=== PATIENT | male | born 1990 | race Caucasian/White ===

== ENCOUNTER 2024-10-08 16:01 | Inpatient (IN) | payer OTHER, SELFPAY ==
[2024-10-08 11:41] VITALS: BP 113/85
[2024-10-08 12:47] VITALS: BMI 34.4
--- NOTE | 2024-10-08 15:03 | ED.GENMED ---
History of Present Illness
General
Chief Complaint: Musculo-Skeletal Complaint
Source: patient
Time Seen by Provider: 10/08/24 12:34
History of Present Illness
History of Present Illness:
This a 34-year-old male who injured his left arm 1 week ago. Patient states he had dropped his phone going up an escalator going to work and tried to jump over the other side and lost his footing and fell. He was seen in a hospital in [place]
and had a splint placed. He was advised to follow-up with orthopedics. He called for follow-up and next appointment was mid October. The pain has persisted. Dad is concerned because he lives in a [facility] and he is worried about his ability
to follow-up appropriately. Patient reports he has pains in the left humeral area rating up to his shoulder. No numbness or tingling. States he is able to move his fingers okay. He is in a long-arm splint.
Past History
Past History
ED Past Medical History: Other (ADHD, dyslexia)
Phy Exam
Physical Exam
Physical Exam:
CONSTITUTIONAL Vital signs reviewed, Patient alert and oriented to person, place and time. Well-appearing
HEAD atraumatic, normocephalic.
EYES eyelids normal to inspection, Extraocular muscles intact, Conjunctiva normal, Sclera normal.
NECK normal range of motion, Trachea midline, no jugular venous distention.
RESP no respiratory distress
BACK No obvious deformities
UPPER EXTREMITY unable to range the left shoulder and elbow due to pain. Splint was removed. Does have some healing ecchymosis noted to the humeral area. He does have a noted deformity and swelling to that area. Gross motor strength normal
LOWER EXTREMITY Gross range of motion normal, Gross motor strength normal
NEURO Speech normal, No focal motor deficits include, Javier coma scale 15, Memory normal, Cranial Nerves intact to screening exam.
SKIN Skin warm, dry, and normal in color.
PSYCHIATRIC Patient oriented to person place and time, Normal affect.
Course
Orders/Labs/Results
Orders:
Orders
10/08/24 Breakfast
Regular
At Your Request: Full Participation
10/08/24 13:07
CR Elbow - Left Min 2 View Urgent
Reason For Exam: fall, fracture, worsening pain
Forearm, Left 2 View [CR Forearm - Left 2 View] Urgent
Comment:
Reason For Exam: fall, fracture, worsening pain
Shoulder, Left, Trauma CR [CR Shoulder, Trauma - Left] Urgent
Comment:
Reason For Exam: fall, humeral fracture, worsening pain
10/08/24 15:13
CT Upper Ext W/o Iv Cont Lt Urgent
Comment: requested by ortho
Reason For Exam: humerus fracture
Splints/Slings/Crut- Treatment ONCE
Location: Left
Type of Splint: Other
Comment: coaptation splint
10/08/24 15:28
CBC/No Diff [Complete Blood Count/No Diff] Urgent
CMP [Comprehensive Metabolic Panel] Urgent
10/08/24 15:46
HYDROmorphone [Dilaudid] 0.25 mg IV NOW STA
10/08/24 15:50
Admit/Transfer Patient As Directed
Co-Sign Provider:
Level of Care: Inpatient admission
Assign to:: Medical/Surgical
Physician / Group: Htay
Diagnosis: Left Humerus Fracture
Reason for Hospitalization: Surgery
Expected length of stay greater than two midnights?: Yes
ELOS- Estimated Length of Stay in days: 3
I certify the patient meets the requirements for IP care: Yes
PRN Pain Medication Management As Directed
May give lesser potent ordered pain med per pt: Yes
preference::
Protocol:: Medication orders for pain may be administered in a
manner that supports deferring to patient preference
when the pt is:
- Requesting an ordered lesser potent pain medication.
Least to most potent pain medications are defined
as: acetaminophen < NSAID < tramadol < opioids
(morphine, oxycodone, hydromorphone).
- Requesting a lesser dose of the same medication IF
ORDERED.
- Requesting a less intrusive route of administration
if both routes are prescribed by the provider (PO <
IV).
10/08/24 15:51
Code Status As Directed
Resuscitation Status: Full Code
10/08/24 17:41
Acetaminophen [Tylenol] 1,000 mg PO TID
HYDROmorphone [Dilaudid] 0.25 mg IV Q3HPRN PRN
Ketorolac [Toradol] 15 mg IV Q6HPRN PRN
Nicotine Polacrilex [Nicorette] 2 mg PO Q2HPRN PRN
Oxycodone [Roxicodone] 5 mg PO Q4HPRN PRN
10/08/24 17:41
ORTHOPEDIC CONSULT Routine
Consulting Provider: Frankie Woodruff
Was physician already notified: Yes
Activity As Directed
Activity Level: Out of Bed-Early Mobility
Pneumatic Compression Sleeves As Directed
Type: Knee high
Vital Signs As Directed
Frequency: Per unit guidelines
Weight Bearing Status As Directed
Weight bearing to: Left upper extremity
Type: Non Wt. bearing
Smoking Cessation Counseling [RESP] Routine
Special Instructions: Vaping
DX Deep Vein Thrombosis Video Routine
10/09/24 Breakfast
NPO
Allow oral meds: Yes
Allow clear liquids: 4hrs prior to procedure
Comment: may have unrestricted clear liquid up to 4 hrs prior to scheduled procedure
Abnormal Lab Results
10/08/24
15:28
WBC 11.5 H 10^3/uL
(4.8-10.8)
RBC 4.60 L 10^6/uL
(4.70-6.10)
ALT 52 H U/L
(0-50)
10/08/24 15:28
10/08/24 15:28
Vital Signs
Initial and Last Documented VS:
Initial Vital Signs
Temp Pulse Resp BP Pulse Ox
99 F 90 16 113/85 99
10/08/24 11:41 10/08/24 11:41 10/08/24 11:41 10/08/24 11:41 10/08/24 11:41
Last Documented Vital Signs
Temp Pulse Resp BP Pulse Ox
99.0 F 91 18 125/83 99
10/08/24 17:45 10/08/24 17:45 10/08/24 17:45 10/08/24 17:45 10/08/24 17:45
MDM/Problems Addressed
MDM/Problems Addressed:
Displaced humeral fracture
*Radiology
Radiology exam reviewed: preliminary read by ED provider (Displaced humeral fracture)
*Pulse Oximetry
Patient hypoxic: no
*Critical Care Note
Total Time (30-74mins, 75-104mins- exclusive of procedures): Not Applicable
Data Reviewed
Source: patient and family
Patient Management
Discussion with other providers: Hospitalist and Mash Processing Operator (Case discussed with orthopedics who recommends CT and admission for operative repair tomorrow)
ED Attending Note
-
Portions of this chart may have been created with voice recognition software.� Occasional wrong word or��sound alike� substitutions may have occurred due to the inherent limitations of voice recognition software.
Discharge Plan
Departure
Patient Disposition: Admit
Date of Disposition: 10/08/24
Time of Disposition: 15:12
Admit to: Med/Surg
Presentation/result/management discussed w/ accepting MD/DO: Hospitalist
Discharge Problem:
Displaced fracture of left humerus
Interventions
Interventions:
*Risk Screen - Suicide Last Done: 10/08/24 11:45
*General Assessment Last Done: 10/08/24 12:47
*Neglect/Abuse Screening Last Done: 10/08/24 11:45
ED- Fall Risk Assessment Last Done: 10/08/24 15:39
*ED COVID-19 Vaccine History Last Done: 10/08/24 11:44
*Nursing Disposition Last Done: 10/08/24 17:43
ED-Musculoskeletal Assessment Last Done: 10/08/24 12:47
Discharge Date and Time
Discharge Date/Time: 10/08/24 17:44
--- NOTE | 2024-10-08 15:19 | HPS.HSE ---
Family Physician
-
Family Physician: * NONE
Chief Complaint
-
Left Arm Pain
History of Present Illness
Patient is a 34 y/o male who present with severe left arm pain. Patient reports he sustained a fall last week where he landed on his left arm. He was seen at an outside hospital where he was found to have a left humerus fracture. They wrapped the
arm in an JOSEFINA wrap and instructed him to follow-up with orthopedics. He was unable to get an appointment with ortho until October. Today he developed worsening pain prompting him to come to the emergency department for evaluation.
Medical History
Past Medical History
Past Medical History: Reports None
Past Surgical History: Reports None
Social History
Tobacco: Other (Former smoker quite about 2 years ago; Now Vapes frequently)
Alcohol: Occasional
Family History
Family History: Not pertinent
Allergies / Home Medications
Allergies reflects when Allergies were last updated in [facility].
Home Medications with original date entered in [facility]
Allergy/Medication List:
Allergies
Allergy/AdvReac Type Severity Reaction Status Date / Time
No Known Allergies Allergy Unverified 10/08/24 11:44
Home Medications
ibuprofen 200 mg tablet 400 mg PO Q8HPRN PRN mild pain 10/08/24
Review of Systems
-
A 12 point ROS was completed and negative except as noted: Yes
Constitutional: Denies Fever or Chills
Respiratory: Reports Cough (Slightly worse over the past few days); Denies Trouble Breathing
Cardiac: Denies Chest Pain or Palpitations
Abdomen/GI: Denies Abdominal Pain, Nausea, Vomiting or Diarrhea
Physical Exam
Vital Signs
Vital Signs
Temp Pulse Resp BP Pulse Ox
99 F 90 16 113/85 99
10/08/24 11:41 10/08/24 11:41 10/08/24 11:41 10/08/24 11:41 10/08/24 11:41
Physical Exam
General: Comfortable and Conversant
HEENT: Anicteric and Moist mucous membranes
Respiratory: Clear and Non Labored Respirations
Cardiac: S1/S2 and Regular Rhythm
GI: Soft and Non Tender
Musculoskeletal: No Clubbing, No Cyanosis and Other (LUE edema)
Skin: Warm and Dry
Neuro: Awake, Alert, Oriented and Nonfocal/grossly intact
Psych: Calm
Data Reviewed
-
Lab Data: Labs Reviewed by me
Impression/Plan
-
Left Humerus Fracture
-Consult Ortho
-Plan for OR tomorrow
-Continue immobilization
-Continue Tylenol, Oxycodone and Dilaudid for pain
Nicotine Dependence
-Patient reports almost constant vaping
-Encourage cessation of vaping
-Offered nicotine patch which patient declined - He is agreeable to try nicotine gum
DVT proph: SCDs
Code Status: Full Code
[2024-10-08 15:44] LABS: Hematocrit 39.8 % (39.0-52.0); Hemoglobin 13.7 g/dL (13.0-18.0); Mean Corp Hgb Conc. 34.4 g/dL (33.0-37.0); Mean Corpuscular Hgb 29.8 pg (27.0-31.0); Mean Corpuscular Volume 86.5 fL (80.0-94.0); Platelet Count 375 10^3/uL (130-400); Red Cell Dist. Width 13.1 % (11.5-14.5); White Blood Cell Count 11.5 10^3/uL (4.8-10.8)
[2024-10-08 15:59] LABS: ALT (SGPT) 52 U/L (0-50); AST (SGOT) 41 U/L (17-59); Albumin 4.2 g/dl (3.5-5.0); Alkaline Phosphatase 101 U/L (38-126); Blood Urea Nitrogen 15 mg/dl (9-20); Calcium 9.7 mg/dl (8.4-10.2); Carbon Dioxide 27 mmol/L (22-30); Chloride 101 mmol/L (98-107); Estimated Creatinine Clearance > 125 ml/min; Glucose 89 mg/dl (70-99); Potassium 4.6 mmol/L (3.5-5.1); Sodium 139 mmol/L (135-145); Total Bilirubin 1.1 mg/dl (0.2-1.3); Total Protein 7.1 g/dl (6.3-8.2); eGFR > 60.00
--- NOTE | 2024-10-08 16:11 | W.PN.UPDATE ---
Update Note
Progress Note Update
This note serves as an addendum to the H&P by talend developer BOB Jeanie ROCHA
HPI
34M Rt handed Man no signifcant PMH , not on any medication s/p mechanica fall on the escaltor 1 week ago , seen at different hospital , on sling with pending OP Ortho f/u pw severe worsening pain and swelling
PE:
Stable HD state
NAD
Atraumatic head
Lt UEx: swollen , palpable radial pulse
Data
WCC 11.5
Hgb 13.7
Plt 375
Unremarkable CMP
XR :
Complex, moderately displaced fracture involving the distal LEFT humerus.
Moderate associated soft tissue edema.
ASSESSMENT & PLAN
Complex, moderately displaced fracture involving the distal LEFT humerus s/p Mechanical fall
Moderate associated soft tissue edema
- Fx set protocol wit pain control , BW regime
- NPO after MN
- Ortho consulted
DVT Px: SCD
Full code
IP MS
[2024-10-08] MEDS: DILAUDID 0.25 MG IV (16:17)
[2024-10-08 17:29] VITALS: BP 126/81
[2024-10-08 17:45] VITALS: BP 125/83
[2024-10-08 17:46] VITALS: BMI 34.6
[2024-10-08] MEDS: TYLENOL 1000 MG PO ×2 (17:52→22:13)
[2024-10-08] MEDS: NICORETTE 2 MG PO (18:14)
[2024-10-08 23:00] VITALS: BP 117/65
[2024-10-09] VITALS (11 sets, daily range): BP systolic 112–129; BP diastolic 70–87
[2024-10-09] MEDS: ROXICODONE 5 MG PO (03:03)
--- NOTE | 2024-10-09 07:41 | CON.ORTHO ---
Consultation
-
Date/Time Consultation Requested: 10/08/24, time unknown
Date/Time Consultation Performed: 10/09/24 @7:20am
Requesting Provider: Julia Menon
Performing Provider: Angie Hatfield PA-C
Reason for Consultation: left distal humerus fracture
Consultation - Orthopedics
History
HPI: 34yo male admitted to [facility] for left arm pain. He reports that he had a fall about one week ago. He was going up an escalator when he dropped his phone. He jumped over the rail of the escalator, lost his footing and fell, landing
on the left arm. He states that he was seen at an outside hospital and placed in a splint with instructions to follow up with orthopedics. He states that he was unable to get an appointment until October. He came to the ER last night due to
increased pain.
PAST MEDICAL HISTORY: ADHD
PAST SURGICAL HISTORY: None
SOCIAL HISTORY: +vape, occasional alcohol.
FAMILY HISTORY: Non contributory
REVIEW OF SYSTEMS: 12 point review of systems obtained and negative except those mentioned in the HPI
Allergies / Home Medications
Allergy/AdvReac Type Severity Reaction Status Date / Time
No Known Allergies Allergy Unverified 10/08/24 11:44
�Medication �Instructions �Recorded
ibuprofen 200 mg tablet 400 mg PO Q8HPRN PRN mild pain 10/08/24
Vital Signs / Lab Results
Temp Pulse Resp BP Pulse Ox
98.5 F 70 16 117/65 97
10/08/24 23:00 10/08/24 23:00 10/08/24 23:00 10/08/24 23:00 10/08/24 23:00
10/08/24 15:28
10/08/24 15:28
RADIOGRAPHIC FINDINGS:
Xrays left shoulder, forearm, elbow show complex, moderately displaced fracture involving the distal LEFT humerus. Moderate associated soft tissue edema.
CT Left Upper Extremity shows slightly comminuted oblique fracture involving the mid to distal diaphysis of the left humerus. In addition to the dominant proximal and distal fracture component, there is an isolated fracture fragment measuring
approximately 5 cm in length. The distal margin of the proximal fracture component is displaced anteriorly relative to the distal fracture component with displacement of approximately 2 cm. No osteolytic or blastic lesion to suggest pathologic
fracture.
PHYSICAL EXAM:
General: no acute distress
HEENT: NCAT, sclera anicteric, normal hearing
Heart: No JVD
Lungs: normal work of breathing on room air
MSK: Focused exam of left upper extremity reveal splint in place. This was not removed. He is able to perform range of motion of the wrist and fingers. Sensation intact to light touch. Cap refill <2secs
Assessment / Plan
ASSESSMENT: 34yo male with displaced left distal humerus fracture
PLAN: Unfortunately, Mr. Cheung has sustained a displaced left distal humerus fracture. Recommend operative fixation. We discussed the risks, benefits, and potential complications. He is in agreement and wishes to proceed with left distal humerus
ORIF under the direction of Dr. Woodruff. Will plan on OR later today. Remain NPO. Leave splint in place and remain non weight bearing. Surgical consent was obtained and placed on patient's chart. Irrigation and antibiotics patient relations director to OR. Continue
with pain management as needed. Will continue to follow.
[2024-10-09] MEDS: TYLENOL 1000 MG PO ×2 (07:51→22:44)
--- NOTE | 2024-10-09 11:31 | CM ---
Patient seen bedside.
IA completed.
Patient will be going home with father in [place].
Multistory home.
Independent prior to admission.
Patient was most recently in a residential home in [place], but states he will be going to [address] [place] [address] post hospitalization.
No hx VN.
Patient for OR today for fractured humerus
No homecare needs anticiapted.
PCP: Dr Chadd Alcantara, [place]
Pharmacy: [facility]
--- NOTE | 2024-10-09 12:13 | W.PN.HOSP.TC ---
Today's Communication/Plan
-
Operative fixation of left upper extremity today
Assessment / Plan
Assessment / Plan
Physical Exam
General: Comfortable and Conversant
HEENT: Anicteric and Moist mucous membranes
Respiratory: Clear and Non Labored Respirations
Cardiac: S1/S2 and Regular Rhythm
GI: Soft and Non Tender
Musculoskeletal: No Clubbing, No Cyanosis and left upper extremity sling
Skin: Warm and Dry
Neuro: Awake, Alert, Oriented and Nonfocal/grossly intact
Psych: Calm
# Acute displaced left distal humerus fracture
Continue with pain control.
Patient was evaluated by orthopedic, plan for operative fixation today. Currently, patient is n.p.o.
# Preoperative evaluation
Patient has no history of lung or heart disease. Reports active lifestyle without chest pain or shortness of breath.
Normal blood pressure and heart rate.
Will order preoperative EKG
# History of reflux, possible induced by vaping or underlying hiatal hernia
Advised to follow-up with a primary care doctor and to avoid vaping
# Leukocytosis, likely reactive. No fever. Continue to monitor
#Nicotine Dependence
-Patient reports almost constant vaping
-Encourage cessation of vaping
-Offered nicotine patch which patient declined -
Total time spent to see the patient, examine the patient, review data and lab results, discuss treatment plan with patient, nursing care around 55 minutes
Anticipated Discharge: Within 24 hours
Subjective/Interval History
-
Date of Service: October 09, 2024
No sob
No chest pain
Objective Data
-
Vital Signs:
Vital Signs
Temp Pulse Resp BP Pulse Ox
98.3 F 64 17 112/70 97
10/09/24 07:46 10/09/24 07:46 10/09/24 07:46 10/09/24 07:46 10/09/24 07:46
I&O
10/08/24 10/09/24 10/10/24
06:59 06:59 06:59
Intake Total 480 / 480
Balance 480 / 480
--- NOTE | 2024-10-09 18:29 | W.PN.UPDATE ---
Update Note
Progress Note Update
s/p left distal humerus ORIF with Dr. Woodruff
-splint to LUE- NWB; may perform ROM of exposed wrist and hand
-monitor for radial and ulnar nerve neurapraxia- received block for pain
-DVT ppx- ASA 81mg BID for 4 weeks unless recommended otherwise per primary
-reg diet order placed
-pain regimen on board
-DC info completed- outpatient f/u 2 weeks for splint takedown, xrays and wound check
-may likely dc tomorrow pending NV exam from ortho aspect.
[2024-10-09] MEDS: DILAUDID 0.5 MG IV ×2 (18:37→18:57)
[2024-10-09] MEDS: TORADOL 15 MG IV (19:12)
[2024-10-09] MEDS: TYLENOL PO (20:04)
[2024-10-09] MEDS: LOW STRENGTH ASPIRIN 81 MG PO (20:46)
[2024-10-09] MEDS: DILAUDID 0.25 MG IV (20:56)
[2024-10-09] MEDS: ANCEF 5 IV (20:57)
[2024-10-10] VITALS (7 sets, daily range): BP systolic 108–128; BP diastolic 56–85; PULSE 94; O2SAT 97
[2024-10-10] MEDS: DILAUDID 0.25 MG IV ×2 (01:26→18:23)
[2024-10-10] MEDS: ANCEF 5 IV (05:26)
--- NOTE | 2024-10-10 05:51 | DOWNTIME ---
There was a [employer] Client Substance Addiction Coordinator Downtime on 10/10/2024 from 0100 to 10/10/2024 at 0350. Downtime documentation of patient's care, including medication administrations, has been reconciled in the electronic record per guidelines. Refer to the
patient's paper chart under the miscellaneous tab to see printed paper medication records and downtime forms.
--- NOTE | 2024-10-10 07:16 | W.PN.ORTHO ---
Today's Communication / Plan
-
34 yo M POD1 left distal humerus ORIF with Dr. Woodruff
--Splint to LUW. NWB; may perform ROM of exposed wrist and hand.
--Monitor for radial and ulnar nerve neurapraxia- received block for pain.
--DVT ppx- ASA 81mg BID for 4 weeks unless recommended otherwise per primary.
--Continue pain control prn. Discussed pain medications for d/c with Dr. Morales.
--DC info completed- outpatient f/u 2 weeks for splint takedown, xrays and wound check.
Assessment
.
Distal Motor Intact: Yes
Dressing:
Clean, dry and intact.
Plan
.
Surgery / Date: ORIF left distal humerus, Ranjan, 09/08
Activity:
Out of bed.
PT/OT
Subjective
.
.:
Mr. Cheung is POD1 following his ORIF left distal humerus fracture performed by Dr. Woodruff. He is resting comfortably in bed this morning, but does endorse quite a bit of pain throughout the arm. He reports the sensation in his hand is slowly
returning as the nerve block wears off. He is hoping to be discharged home today.
Vital Signs and Labs
.
Vital Signs and Labs:
Temp Pulse Resp BP Pulse Ox
99 F 74 16 121/75 97
10/10/24 04:12 10/10/24 04:12 10/10/24 04:12 10/10/24 04:12 10/10/24 04:12
Physical Exam
-
Directed exam of the left upper extremity reveals post-op splint in place. Expected post-operative edema in the left hand. Patient able to wiggle fingers, and extend thumb. Unable to extend wrist at this point. Sensation to light touch slightly
diminished throughout, consistent with resolving nerve block. Capillary refill <2 seconds.
[2024-10-10] MEDS: LOW STRENGTH ASPIRIN 81 MG PO ×2 (07:45→20:45)
[2024-10-10] MEDS: TYLENOL 1000 MG PO ×3 (07:45→21:54)
[2024-10-10] MEDS: ROXICODONE 5 MG PO ×3 (08:00→21:56)
[2024-10-10 08:42] LABS: Hematocrit 39.7 % (39.0-52.0); Hemoglobin 13.3 g/dL (13.0-18.0); Mean Corp Hgb Conc. 33.5 g/dL (33.0-37.0); Mean Corpuscular Hgb 28.9 pg (27.0-31.0); Mean Corpuscular Volume 86.1 fL (80.0-94.0); Mean Platelet Volume 10.1 fL (7.4-10.4); Platelet Count 455 10^3/uL (130-400); Red Blood Cell Count 4.61 10^6/uL (4.70-6.10); White Blood Cell Count 11.2 10^3/uL (4.8-10.8)
[2024-10-10 11:16] LABS: Blood Urea Nitrogen 20 mg/dl (9-20); Calcium 9.3 mg/dl (8.4-10.2); Carbon Dioxide 26 mmol/L (22-30); Chloride 100 mmol/L (98-107); Estimated Creatinine Clearance > 125 ml/min; Glucose 108 mg/dl (70-99); Potassium 4.8 mmol/L (3.5-5.1); Sodium 139 mmol/L (135-145); eGFR > 60.00
--- NOTE | 2024-10-10 13:30 | W.PN.HOSP.TC ---
Today's Communication/Plan
-
Pain control
Likely discharge in am
Assessment / Plan
Assessment / Plan
Physical Exam
General: Comfortable and Conversant
HEENT: Anicteric and Moist mucous membranes
Respiratory: Clear and Non Labored Respirations
Cardiac: S1/S2 and Regular Rhythm
GI: Soft and Non Tender
Musculoskeletal: No Clubbing, No Cyanosis and left upper extremity sling
Skin: Warm and Dry
Neuro: Awake, Alert, Oriented and Nonfocal/grossly intact
Psych: Calm
# Acute displaced left distal humerus fracture, s/p left distal humerus ORIF, Dr. Woodruff on 10/09
Continue with pain control.
DVT prophylaxis with aspirin 81 mg BID by ortho doctor
# Leukocytosis, reactive
No fevers
# History of reflux, possible induced by vaping or underlying hiatal hernia
Advised to follow-up with a primary care doctor and to avoid vaping
# Leukocytosis, likely reactive. No fever. Continue to monitor
#Nicotine Dependence, he reports he quit tobacco cigarette 4 years ago but using Vaping
-Encourage cessation of vaping, he seems to be willing to quit, understands potential side effects.
-Offered nicotine patch which patient declined -
Total time spent to see the patient, examine the patient, review data and lab results, discuss treatment plan with patient, ortho service, nursing care around 55 minutes
Anticipated Discharge: Within 24 hours
Subjective/Interval History
-
Date of Service: October 10, 2024
No sob
No chest pain
Objective Data
-
Labs:
Laboratory Results
10/10/24
08:03
WBC 11.2 H
Hgb 13.3
Hct 39.7
Plt Count 455 H D
Sodium 139
Potassium 4.8
Chloride 100
Carbon Dioxide 26
BUN 20
Creatinine 0.9
Glucose 108 H
Calcium 9.3
Vital Signs:
Vital Signs
Temp Pulse Resp BP Pulse Ox
98.3 F 86 16 119/78 98
10/10/24 07:30 10/10/24 07:30 10/10/24 07:30 10/10/24 07:30 10/10/24 07:30
I&O
10/09/24 10/10/24 10/11/24
06:59 06:59 06:59
Intake Total 480 / 480 680 / 680
Output Total 500 / 500
Balance 480 / 480 180 / 180
[2024-10-10] MEDS: TORADOL 15 MG IV (20:51)
[2024-10-11] MEDS: ROXICODONE 5 MG PO ×2 (05:12→09:48)
[2024-10-11 07:30] VITALS: BP 130/73
[2024-10-11] MEDS: TYLENOL 1000 MG PO (07:39)
[2024-10-11] MEDS: LOW STRENGTH ASPIRIN 81 MG PO (07:39)
--- NOTE | 2024-10-11 08:43 | W.DCSUMMARY ---
Discharge Summary
Discharge Data
Date of Admission: 10/08/24
Date of Discharge: 10/11/24
-
Pending Results: No
Hospital Course
34 years old male presented after a fall about one week before presenting to the ER. He was going up an escalator when he dropped his phone. He jumped over the rail of the escalator, lost his footing and fell, landing on the left arm. He states that
he was seen at an outside hospital and placed in a splint with instructions to follow up with orthopedics. He was found to have an acute displaced left distal humeral fracture. Patient was evaluated by orthopedic doctor. He underwent open
reduction and internal fixation of distal humerus by Dr. Woodruff on 10/09. He had postoperative pain and was given pain medication. Patient was given aspirin 81 mg twice daily by orthopedic service for DVT prophylaxis. Patient remained
hemodynamically stable. Patient reported vaping history, he was counseled to quit and he verbalized understand the potential side effects of smoking/vaping. Patient was evaluated by rn case manager for discharge planning and was discharged home in a
stable condition.
Physical Exam
General: Comfortable and Conversant
HEENT: Anicteric and Moist mucous membranes
Respiratory: Clear and Non Labored Respirations
Cardiac: S1/S2 and Regular Rhythm
GI: Soft and Non Tender
Musculoskeletal: No Clubbing, No Cyanosis and left upper extremity sling and clean dressing. Normal and good peripheral pulse in left radial artery.
Skin: Warm and Dry
Neuro: Awake, Alert, Oriented X3, lucid, and Nonfocal/grossly intact
Psych: Calm, no agitation
Total discharge time spent to see the patient, examine the patient, review data and lab results, discuss discharge plan with patient, orthopedic service, rn case manager, nursing staff around 65 minutes
Discharge Plan
-
Patient Disposition: Home (Routine Discharge)
Discharge Diagnosis/Procedures: Left distal humeral shaft fracture status post Open reduction, internal fixation of left distal humeral shaft fracture by Dr. Woodruff on 10/09/24.
Additional Activity: splint to left upper extremity- do not get wet. Do not bear weight in the left upper extremity. Ok to move exposed wrist/fingers.
Driving Restrictions: Not until seen by your Dr
Bathing Restrictions: do not get splint wet
Referrals:
NONE,* [Family Provider] -
Frankie Woodruff MD [Active] - (please call the office to schedule a follow-up 2 weeks from your date of surgery for splint removal, wound check and x-rays. )
Prescriptions:
New
acetaminophen [Tylenol Extra Strength] 500 mg Tablet
1,000 mg PO Q6HPRN PRN (Reason: mild to moderate pain) Qty: 10 0RF
aspirin 81 mg Tablet,Chewable
81 mg PO BID Qty: 60 0RF
oxycodone 5 mg Tablet
5 mg PO Q8HPRN PRN (Reason: severe pain) Qty: 15 0RF
Continued
ibuprofen 200 mg Tablet
400 mg PO Q8HPRN PRN (Reason: mild to moderate pain) Qty: 0 0RF
Discharge Orders:
Discharge Patient (As Directed); Ordered 10/11/24
Ordered By: Tania Morales
Discharge Date and Time
Discharge Date/Time: 10/11/24 10:03
Print Language: HUNGARIAN
== END 2024-10-11 10:03 | disposition home or self-care (01) | DRG 494 ==
LOC: 3 WEST ACU 16:01
PROVIDERS: Physician Assistant Medical; ADMITTING PHYSICIAN Internal Medicine; ATTENDING PHYSICIAN Internal Medicine; CONSULT PHYSICIAN Orthopaedic Surgery Hand Surgery; EMERGENCY PHYSICIAN Emergency Medicine
PROC: 0PSG04Z Reposition Left Humeral Shaft with Internal Fixation Device, Open Approach (ICD-10-PCS; 2024-10-09)
DX: S42.302A Unspecified fracture of shaft of humerus, left arm, initial encounter for closed fracture (principal); W01.0XXA Fall on same level from slipping, tripping and stumbling without subsequent striking against object, initial encounter; F17.200 Nicotine dependence, unspecified, uncomplicated
CPT/HCPCS: 29105; 73030; 73060; 73070; 73090; 73200; 76000; 80048; 80053; 85027; 86850; 86900; 86901; 96374; 97166; 99285